=== PATIENT | female | born 1965 | race Caucasian/White ===

== ENCOUNTER 2022-12-21 09:51 | Outpatient (AMB) | payer OTHER, SELFPAY ==
--- NOTE | 2022-12-21 09:59 | MHC.OFFVIS ---
Intake Vital Signs 12/21/22 10:01 Height 5 ft 7 in Weight 264 lb 8.875 oz BMI 41.4 BP 181/89 H Blood Pressure Location Lt brachial Position Sitting Pulse 82 Intake Visit Reasons: pos cologuard Intake Note: Elsa presents in the office as a new patient CC: Denies any bleeding buts states that her normal BM is diarrhea. Nursing Services Manager Required: No Allergies acetaminophen Allergy (Mild, Verified 12/21/22 10:03) Unknown caffeine Allergy (Mild, Verified 12/21/22 10:03) Unknown epinephrine Allergy (Mild, Verified 12/21/22 10:03) Unknown Sulfa (Sulfonamide Antibiotics) Allergy (Mild, Verified 12/21/22 10:03) Unknown Medication List - Last Reconciled 12/21/22 by Alpa Hair MD escitalopram oxalate (Lexapro) 5 mg PO DAILY lisinopril 20 mg PO BID simvastatin 5 mg PO DAILY HPI HPI Comments History of Present Illness Details 57y.o F with PMH of asthma, obesity, HTN, HLD, tobacco use disorder, etOH use who has been referred to our office for positive cologuard. Does report occasional BRBPR on wiping maricarmen on constipation. Also has fam hx of polyps in sister and father. Pt took cologuard test in October for index CRC screening which resulted positive. Review of Systems Const All systems reviewed & are unremarkable except as noted in HPI and below Physical Exam Vital Signs: Last Vital Signs Pulse 82 12/21/22 10:01 BP 181/89 H 12/21/22 10:01 BMI result Body Mass Index 41.4 Gen appear: NAD HEENT: nonicteric, no cervical lymphadenopathy Chest: CTA CVS: Regular S1/S2 Abd: soft, nontender, nondistended, bowel sounds + Ext: no peripheral edema Neuro: A/Ox3, noted to move all extremities spontaneously Psych: interacting appropriately Assessment & Plan Assessment & Plan (1) Positive colorectal cancer screening using Cologuard test: Code(s): R19.5 - Other fecal abnormalities (2) Tobacco abuse counseling: Code(s): Z71.6 - Tobacco abuse counseling (3) Obesity: Code(s): E66.9 - Obesity, unspecified Plan Discussed with the pt that cologuard test detects both DNA as well as Hb markers which MAY indicate advanced adenoma or early cancer. False positives do occur. In a clinical study, 13% of patients without colorectal cancer or advanced adenomas received a positive result. However, a positive cologuard needs to be followed up with a colonoscopy within 3-6 months. Given her intermittent rectal bleeding as well as fam hx would have favored a colo in any case for screening. Plan: - Split PEG prep instructions reviewed. - [facility] to be booked in 3-4 months latest - She was strongly advised re smoking cessation maricarmen to avoid periprocedural pulm complications - May also benefit from bariatric referral which can be reviewed in detail at next visit Follow up after colo. Medications: New peg 3350-electrolytes 236-22.74-6.74 -5.86 gram (Golytely) as per split prep instructions, until fecal effluent is clear 240 mL PO Q10M 4,000 mL 0RF colonoscopy Coding Level of Care Code New Pt Level 4 (51408) Diagnoses Positive colorectal cancer screening using Cologuard test R19.5 Tobacco abuse counseling Z71.6 Obesity E66.9
[2022-12-21 10:01] VITALS: BP 181/89; PULSE 82; BMI 41.4
== END 2022-12-21 10:29 | disposition home or self-care (01) ==
PROVIDERS: Visit Provider Internal Medicine
DX: R19.5 Other fecal abnormalities (principal); Z71.6 Tobacco abuse counseling; E66.9 Obesity, unspecified
CPT/HCPCS: 99204

== ENCOUNTER → 2022-12-21 09:51 | Outpatient (BNVA) | payer OTHER, SELFPAY | PROVIDERS: Visit Provider Internal Medicine ==

== ENCOUNTER 2023-01-13 11:31 | Day surgery (SDC) | payer OTHER, SELFPAY ==
[2023-01-11 11:06] VITALS: BMI 41.3
--- NOTE | 2023-01-12 11:44 | P.CONAN_ITS ---
Documented by User: Flor Rosales NP 01/12/23 11:45 HPI - Anesthesia Eval Consult details Narrative: 57yo F for Colonoscopy PMFSH Active Problems Active Problems: All Active Problems (Updated 01/11/23 @ 11:36 by Bridgette Nolasco, RILEY) Obesity (Acute) Tobacco abuse counseling (Acute) Positive colorectal cancer screening using Cologuard test (Acute) Past Medical History Medical History (Updated 01/11/23 @ 11:36 by Bridgette Nolasco RN) Tobacco abuse disorder HLD (hyperlipidemia) HTN (hypertension) Obesity Asthma Surgical History Surgical History (Updated 01/13/23 @ 12:26 by Fatou Grey RN) History of bilateral fallopian tube excision History of exploratory laparotomy Social History Social History Patient Tobacco Use Status: Current everyday Tobacco user Tobacco use type: Cigarette Cigarettes Per Day: 10 Use of substances other than those prescribed or required for medical reasons: No Are you DNR?: No Advance Directives: No Advance Directives Information Provided: Yes Meds Allergies Allergy/AdvReac Type Severity Reaction Status Date / Time acetaminophen Allergy Mild Palpitation Verified 01/13/23 12:24 s caffeine Allergy Mild Palpitation Verified 01/13/23 12:24 s epinephrine Allergy Mild Hypertensio Verified 01/13/23 12:24 n Sulfa (Sulfonamide Allergy Mild Dizziness Verified 01/13/23 12:24 Antibiotics) Home Medications Medication Instructions Recorded Confirmed Last Taken Type escitalopram oxalate 5 mg tablet 10 mg PO DAILY 12/21/22 01/13/23 01/13/23 History (Lexapro) lisinopril 20 mg tablet 20 mg PO BID 12/21/22 01/13/23 01/13/23 History simvastatin 5 mg tablet 5 mg PO DAILY 12/21/22 12/21/22 Unknown History Exam Exam Date and Time: January 12, 2023 1144 Height,Weight and Vital Signs: Height 5 ft 7 in Weight 119.748 kg Assessment and Plan Assessment Anesthesia Assessment: Chart Reviewed Documented by User: Tye José MD 01/13/23 13:00 [facility] Past Medical History Medical History (Updated 01/11/23 @ 11:36 by Bridgette Nolasco, RILEY) Tobacco abuse disorder HLD (hyperlipidemia) HTN (hypertension) Obesity Asthma Family History Family history of problems with anesthesia: No Surgical History Surgical History (Updated 01/13/23 @ 12:26 by Fatou Grey RN) History of bilateral fallopian tube excision History of exploratory laparotomy History of Problems with Anesthesia: No Social History Social History Patient Tobacco Use Status: Current everyday Tobacco user Tobacco use type: Cigarette Cigarettes Per Day: 10 Use of substances other than those prescribed or required for medical reasons: No Are you DNR?: No Advance Directives: No Advance Directives Information Provided: Yes Meds Allergies Allergy/AdvReac Type Severity Reaction Status Date / Time acetaminophen Allergy Mild Palpitation Verified 01/13/23 12:24 s caffeine Allergy Mild Palpitation Verified 01/13/23 12:24 s epinephrine Allergy Mild Hypertensio Verified 01/13/23 12:24 n Sulfa (Sulfonamide Allergy Mild Dizziness Verified 01/13/23 12:24 Antibiotics) Home Medications Medication Instructions Recorded Confirmed Last Taken Type escitalopram oxalate 5 mg tablet 10 mg PO DAILY 12/21/22 01/13/23 01/13/23 History (Lexapro) lisinopril 20 mg tablet 20 mg PO BID 12/21/22 01/13/23 01/13/23 History simvastatin 5 mg tablet 5 mg PO DAILY 12/21/22 12/21/22 Unknown History Exam Airway Mallampati Class: III TM Dist: >3cm Neck ROM: Full Assessment and Plan Assessment Anesthesia Assessment: Anesthesia Plan Discussed Final Anesthetic Review Family History of Problems with Anesthesia: No History of Problems with Anesthesia: No NPO: Yes ASA Class: III Final Preanesthetic Review: No Changes in Pt Med Stat, Meds/Allgs Chart Reviewed, Consent Obtained/Reviewed and Anes Risks/Benef Reviewed Patient Risk: Intermediate Procedure Risk: Low Anesthetic Plan Anesthetic Plan: MAC: Disposition: Standard PACU
[2023-01-13 12:45] VITALS: BP 178/96; PULSE 75; RESP 16; TEMP 36.3; O2SAT 98
[2023-01-13 13:00] VITALS: PULSE 77; RESP 18; O2SAT 99
[2023-01-13] MEDS: Albuterol Sulfate (0.083%) 2.5 MG/3 ML VIAL.NEB INHALE (13:00)
--- NOTE | 2023-01-13 15:04 | MHC.SHP ---
Pre-Procedural Eval Section A Date of Service: 01/13/23 Section B Chief Complaint: Other fecal abnormalities Details of Present Illness: pos cologuard Relevant Family History (Specify if Yes): No Relevant Social History: Tobacco Use Present Medications: see Short Stay Collaborative assessment Medical History: Significant History (asthma, obesity, HTN, HLD, tobacco use disorder, etOH use) History of Previous Operations: Relevant previous surgery/procedure and date(s) (History of bilateral fallopian tube excision History of exploratory laparotomy) Allergies: Allergies Allergy/AdvReac Type Severity Reaction Status Date / Time acetaminophen Allergy Mild Palpitation Verified 01/13/23 12:24 s caffeine Allergy Mild Palpitation Verified 01/13/23 12:24 s epinephrine Allergy Mild Hypertensio Verified 01/13/23 12:24 n Sulfa (Sulfonamide Allergy Mild Dizziness Verified 01/13/23 12:24 Antibiotics) Review of Systems Sugical H&P ROS: Negative: Constitution, Cardiovascular, Respiratory, Neurological, Psychiatric, Hem-Onc, Allergic/Immunologic, Gastrointestinal, Genitourinary, Musculoskeletal, Integumentary, Endocrine and Eyes/Ears/Nose/Throat Exam Surgical H&P Exam: Normal: HEENT, Normal: Heart, Normal: Lungs, Normal: Extremities, Normal: Abdomen, Normal: Skin and Normal: Neurological Plan Diagnosis/Plan: Unchanged I have reviewed the history and physical and performed a pertinent physical examination on my patient. No changes have occurred unless specified. Time Spent With Patient Time: Total time managing care of this patient today ____ minutes.
--- NOTE | 2023-01-13 15:05 | P.OP_ITS ---
Operative Note Operative Note Date of Service: 01/13/23 Narrative: Operative Information Procedure Description: Colonoscopy Indication: pos cologuard Anesthesia: MAC COLONOSCOPY Instrument: Olympus variable stiffness ADULT scope 190L Colonoscopy Monitoring: Vital signs and clinical assessment, continuous EKG monitoring, Pulse oximetry, Carbon Dioxide monitoring and blood pressure monitoring were done throughout the procedure. Colon withdrawal time was 20 minutes. Procedure: The patient was placed in the left lateral decubitis position and pre-procedure medications were administered. After a digital rectal examination of the ano-rectum, the video colonoscope was inserted into the rectum and advanced through the colon to the cecum/TI. The colonoscope was slowly withdrawn in a retrograde panoramic fashion and the colon mucosa was carefully examined including a retroflexed view of the rectum. Findings and interventions are described below. Procedure Difficulty: difficult due to air way issues, coughing, obstruction of air way so not all polyps removed Findings: Terminal Ileum- edematous, erythematous tissue noted, bx taken Cecum:normal Ascending Colon: 15 mm sessile polyp injected with eleview and then removed with hot snare, bleeding noted and 3 clips applied with hemostasis, 10-12 mm sessile polyp removed with cold snare Transverse Colon -normal Descending Colon: 15-16 mm sessile polyp removed with hot snare and x 2 clips applied to close defect, another polyp sessile 12 mm not removed Sigmoid Colon: normal Rectum: Retroflexion with medium sized internal hemorrhoids, grade I, x 2 sessile polyps 10-12 mm not removed Anorectum - normal Colon preparation: [place] Bowel Preparation Scale Right colon; 2 Transverse colon: 2 Left colon; 2 (0 = Unprepared colon segment with mucosa not seen due to solid stool that cannot be cleared. 1 = Portion of mucosa of the colon segment seen, but other areas of the colon segment not well seen due to staining, residual stool and/or opaque liquid. 2 = Minor amount of residual staining, small fragments of stool and/or opaque liquid, but mucosa of colon segment seen well. 3 = Entire mucosa of colon segment seen well with no residual staining, small fragments of stool or opaque liquid) Impression and Post Procedure Diagnosis: polyps internal hemorrhoids Plan: High fiber diet leaflet Avoid straining at stool, epsom salts and sitz bath, anusol supps or cream Repeat Colonoscopy in 2-4 weeks with GA to remove other polyps Above findings were reviewed with the patient and relevant handouts were provided if indicated.
[2023-01-13 15:49] VITALS: BP 151/79; PULSE 92; RESP 17; TEMP 36.6; O2SAT 95
[2023-01-13 16:04] VITALS: BP 147/83; PULSE 73; RESP 16; TEMP 36.7; O2SAT 95
== END 2023-01-13 16:13 | disposition home or self-care (01) ==
PROVIDERS: PCP Internal Medicine; Visit Provider Internal Medicine Gastroenterology
PROC: 0DJD8ZZ Inspection of Lower Intestinal Tract, Via Natural or Artificial Opening Endoscopic (ICD-10-PCS; CPT 45378; principal; 2023-01-13 13:50)
DX: R19.5 Other fecal abnormalities (principal); D12.2 Benign neoplasm of ascending colon; D12.4 Benign neoplasm of descending colon; K64.0 First degree hemorrhoids; J45.991 Cough variant asthma; I10 Essential (primary) hypertension; E78.5 Hyperlipidemia, unspecified; F10.90 Alcohol use, unspecified, uncomplicated; F17.210 Nicotine dependence, cigarettes, uncomplicated; E66.9 Obesity, unspecified; Z68.41 Body mass index [BMI] 40.0-44.9, adult; Z79.899 Other long term (current) drug therapy; Z88.2 Allergy status to sulfonamides; Z88.8 Allergy status to other drugs, medicaments and biological substances
CPT/HCPCS: 45385; 45380; 88305

== ENCOUNTER → 2023-01-13 11:31 | Outpatient (BNV) | payer OTHER, SELFPAY | PROVIDERS: PCP Internal Medicine; Visit Provider Internal Medicine Gastroenterology | DX: Z12.11 Encounter for screening for malignant neoplasm of colon (principal); R19.5 Other fecal abnormalities; D12.2 Benign neoplasm of ascending colon; D12.4 Benign neoplasm of descending colon; D12.8 Benign neoplasm of rectum | CPT/HCPCS: 45381; 45385 ==

== ENCOUNTER 2023-01-26 11:19 | Outpatient (AMB) | payer SELFPAY ==
--- NOTE | 2023-01-26 11:28 | MHC.OFFVIS ---
Intake Vital Signs 01/26/23 11:29 Height 5 ft 7 in Weight 264 lb 8.875 oz BMI 41.4 BP 192/93 H Blood Pressure Location Lt brachial Position Sitting Pulse 87 Intake Visit Reasons: s/p colon Intake Note: Elsa presents in the office as a follow up colonoscopy. CC: She got let go from her job and her insurance is going to be off she is in the process of getting [employer]. She states that she is just here for results - day after surgery she felt like she got punched in the stomach. Allergies acetaminophen Allergy (Mild, Verified 01/26/23 11:33) Palpitations caffeine Allergy (Mild, Verified 01/26/23 11:33) Palpitations epinephrine Allergy (Mild, Verified 01/26/23 11:33) Hypertension Sulfa (Sulfonamide Antibiotics) Allergy (Mild, Verified 01/26/23 11:33) Dizziness HPI HPI Comments History of Present Illness Details 57y.o F with PMH of asthma, obesity, HTN, HLD, tobacco use disorder, etOH use who is coming in for follow up. 12/21/22: Does report occasional BRBPR on wiping maricarmen on constipation. Also has fam hx of polyps in sister and father. Pt took cologuard test in October for index CRC screening which resulted positive. 01/13/23: Terminal Ileum- edematous, erythematous tissue noted, bx taken Cecum:normal Ascending Colon: 15 mm sessile polyp injected with eleview and then removed with hot snare, bleeding noted and 3 clips applied with hemostasis, 10-12 mm sessile polyp removed with cold snare Transverse Colon -normal Descending Colon: 15-16 mm sessile polyp removed with hot snare and x 2 clips applied to close defect, another polyp sessile 12 mm not removed Sigmoid Colon: normal Rectum: Retroflexion with medium sized internal hemorrhoids, grade I, x 2 sessile polyps 10-12 mm not removed Anorectum - normal Path: A. Terminal ileum, biopsy: Chronic, mildly active, ileitis; negative for dysplasia. B. Colon, distal ascending and descending, polypectomies (3): - Fragments of sessile serrated lesions/polyps; negative for cytologic dysplasia. - Hyperplastic mucosal polyp. 01/26/23: Reports no new gastrointestinal complaints. [place] and path report reviewed. Pt is aware that she needs a repeat colo for complete polyp removal as procedure had to be terminated before all polyps could be taken out due to airway issues. She tells me that she recently lost her job and is currently without any health insurance. [facility] Medical History Tobacco abuse disorder HLD (hyperlipidemia) HTN (hypertension) Obesity Asthma Surgical History Hx of colonoscopy History of bilateral fallopian tube excision History of exploratory laparotomy Social History Patient Tobacco Use Status: Current everyday Tobacco user Tobacco use type: Cigarette Cigarettes Per Day: 10 Review of Systems Const All systems reviewed & are unremarkable except as noted in HPI and below Physical Exam Vital Signs: Last Vital Signs Pulse 87 01/26/23 11:29 BP 192/93 H 01/26/23 11:29 BMI result Body Mass Index 41.4 Gen appear: NAD HEENT: nonicteric, no cervical lymphadenopathy Chest: CTA CVS: Regular S1/S2 Abd: soft, nontender, nondistended, bowel sounds + Ext: no peripheral edema Neuro: A/Ox3, noted to move all extremities spontaneously Psych: interacting appropriately Assessment & Plan Assessment & Plan (1) Personal history of colonic polyps: Code(s): Z86.010 - Personal history of colonic polyps (2) Family history of colonic polyps: Code(s): Z83.719 - Family history of colon polyps, unspecified (3) Obesity: Code(s): E66.9 - Obesity, unspecified Plan Reviewed need to have another colonoscopy for complete polyp detection and removal. Has at least 3-4 polyps in her colon measuring >10 mm that are yet to be removed. Since she is currently without a health insurance, requests to bump the currently booked procedure on 02/15. She is aware that we do not recommend postponing this beyond 3 months i.e Dec. She hopes to have her health insurance reinstated within the next few weeks. She is also working on cutting down smoking. Is aware that may need GEA for next colo. Follow up after colo. Coding Level of Care Code Est Pt Level 3 (03251) Diagnoses Personal history of colonic polyps Z86.010 Family history of colonic polyps Z83.719 Obesity E66.9
[2023-01-26 11:29] VITALS: BP 192/93; PULSE 87; BMI 41.4
== END 2023-01-26 13:14 | disposition home or self-care (01) ==
PROVIDERS: PCP Internal Medicine; Visit Provider Internal Medicine
DX: Z86.010 Personal history of colon polyps (principal); Z83.719 Family history of colon polyps, unspecified; E66.9 Obesity, unspecified
CPT/HCPCS: 99213

== ENCOUNTER → 2023-01-26 11:19 | Outpatient (BNVA) | payer SELFPAY | PROVIDERS: PCP Internal Medicine; Visit Provider Internal Medicine | DX: K63.5 Polyp of colon (principal); K64.0 First degree hemorrhoids; E66.9 Obesity, unspecified; Z68.41 Body mass index [BMI] 40.0-44.9, adult; Z98.890 Other specified postprocedural states | CPT/HCPCS: 99212 ==